=== PATIENT | female | born 1980 | race Caucasian/White ===

== ENCOUNTER 2017-10-13 10:20 | Emergency (ER) | payer MEDICAID ==
[~2017-10-13] VITALS: Ht 162.6 cm; Wt 50.0 kg
[~2017-10-13 10:20] MED LIST: ATI1T PO; NO HOME MEDS; ONDA8TAB9 PO
[2017-10-13 11:04] LABS: BASOPHILS % (AUTO) 0.7 % (0-1); EOSINOPHILS % (AUTO) 0.4 % (0-6); HEMATOCRIT 37.4 % (35.0-45.0); HEMOGLOBIN 13.3 g/dl (12.0-16.0); LYMPHOCYTES # (AUTO) 1.3 X10'3 (1.1-4.8); LYMPHOCYTES % (AUTO) 21.3 % (21-51); MEAN CORPUSCULAR HEMOGLOBIN 35.3 PG (27.0-31.0); MEAN CORPUSCULAR HGB CONC 35.5 % (33.0-36.5); MEAN CORPUSCULAR VOLUME 99.5 FL (78-98); MEAN PLATELET VOLUME 7.3 FL (7.4-10.4); MONOCYTES # (AUTO) 0.7 X10'3 (0-0.9); NEUTROPHILS % (AUTO) 65.6 % (42-75); PLATELET COUNT 230 X10'3 (140-440); RED BLOOD COUNT 3.76 X10'6 (4.20-5.60); RED CELL DISTRIBUTION WIDTH 12.4 % (11.5-14.5)
[2017-10-13 11:18] LABS: ALANINE AMINOTRANSFERASE 50 U/L (12-78); ALBUMIN 4.2 G/DL (3.4-5.0); ALBUMIN/GLOBULIN RATIO 1.3 (1.1-1.5); ANION GAP 7 (8-16); ASPARTATE AMINO TRANSFERASE 42 U/L (10-37); BILIRUBIN,TOTAL 0.6 MG/DL (0.1-1.0); BLOOD UREA NITROGEN 11 MG/DL (7-18); CALCIUM 9.5 MG/DL (8.5-10.1); CHLORIDE 104 MMOL/L (99-107); CREATININE 0.61 MG/DL (0.40-0.90); GLUCOSE 95 MG/DL (70-104); POTASSIUM 4.1 MMOL/L (3.5-5.1); SODIUM 142 MMOL/L (135-145); TOTAL CARBON DIOXIDE 31.2 MMOL/L (24-32); TOTAL PROTEIN 7.5 G/DL (6.4-8.2); eGFR > 90 ML/MIN
[2017-10-13 11:19] LABS: ALKALINE PHOSPHATASE 45 IU/L (46-116)
[2017-10-13 12:00] LABS: LIPASE 133 U/L (73-393)
[2017-10-13] MEDS ORDERED: ketorolac trometh inj. 60 MG/2 ML VIAL IM ONE (12:10)
[2017-10-13 12:12] LABS: URINE HCG NEGATIVE (NEG)
[2017-10-13 12:19] LABS: CLARITY,URINE SLIGHTLY CLOUDY (Clear); COLOR,URINE STRAW (Yellow); GLUCOSE, URINE NEGATIVE (Neg); KETONES,URINE NEGATIVE (Neg); LEUKOCYTE ESTERASE ,URINE NEGATIVE (Neg); NITRITES, URINE NEGATIVE (Neg); OCCULT BLOOD,URINE NEGATIVE (Neg); PH,URINE 6.5 (4.8-8.0); PROTEIN,URINE NEGATIVE (Neg); UA COLLECTION TYPE VOIDED; UROBILINOGEN,URINE 0.2 E.U/dL (0.2-1.0)
[2017-10-13 12:23] LABS: SQUAMOUS EPITHELIAL CELL,UR MODERATE /LPF (FEW); TRANSITIONAL EPI CELLS,URINE FEW /HPF
[2017-10-13 12:24] LABS: BACTERIA,URINE FEW /HPF (Neg); RBC,URINE 0-2 /HPF (0-2); WBC,URINE 0-4 /HPF (0-4)
[2017-10-13] MEDS ORDERED: DOXY100C43 PO (12:33)
[2017-10-13 12:47] VITALS: BP 131/88
== END 2017-10-13 12:48 | disposition home or self-care (01) ==
LOC: ER 10:20
DX: T19.2XXA Foreign body in vulva and vagina, initial encounter (principal); J06.9 Acute upper respiratory infection, unspecified; Z88.0 Allergy status to penicillin; Z88.1 Allergy status to other antibiotic agents; Z91.040 Latex allergy status; Z79.899 Other long term (current) drug therapy; X58.XXXA Exposure to other specified factors, initial encounter; Y93.89 Activity, other specified; Y92.89 Other specified places as the place of occurrence of the external cause; Y99.8 Other external cause status
CPT/HCPCS: 36415; 80053; 81001; 81025; 83690; 85025; 96372; 99284; J1885

== ENCOUNTER 2018-12-21 14:40 | Emergency (ER) | payer MEDICAID ==
[~2018-12-21] VITALS: Ht 157.5 cm; Wt 53.0 kg
[2018-12-21 15:24] LABS: BASOPHILS # (AUTO) 0.1 X10'3 (0-0.2); BASOPHILS % (AUTO) 0.8 % (0-1); EOSINOPHILS % (AUTO) 0.5 % (0-6); HEMATOCRIT 42.7 % (35.0-45.0); HEMOGLOBIN 14.7 g/dl (12.0-16.0); LYMPHOCYTES # (AUTO) 1.8 X10'3 (1.1-4.8); MEAN CORPUSCULAR HEMOGLOBIN 33.8 PG (27.0-31.0); MEAN CORPUSCULAR HGB CONC 34.3 g/dL (33.0-36.5); MEAN CORPUSCULAR VOLUME 98.6 FL (78-98); MEAN PLATELET VOLUME 7.7 FL (7.4-10.4); MONOCYTES # (AUTO) 0.8 X10'3 (0-0.9); MONOCYTES % (AUTO) 9.3 % (2-12); NEUTROPHILS # (AUTO) 5.5 X10'3 (1.8-7.7); NEUTROPHILS % (AUTO) 67.4 % (42-75); PLATELET COUNT 260 X10'3 (140-440); RED BLOOD COUNT 4.33 X10'6 (4.20-5.60); RED CELL DISTRIBUTION WIDTH 13.1 % (11.5-14.5); WHITE BLOOD COUNT 8.1 X10'3 (4.5-11.0)
[2018-12-21] MEDS ORDERED: ondansetron/PF 4mg/2ml inj IV ONE (15:30)
[2018-12-21] MEDS ORDERED: morphine 2 MG/ML inj. syringe IV ONE (15:30)
[2018-12-21] MEDS ORDERED: normal saline 1000ML IV soln IVB ONE (15:30)
[2018-12-21 15:38] LABS: ALANINE AMINOTRANSFERASE 22 U/L (12-78); ALBUMIN 4.3 G/DL (3.4-5.0); ALBUMIN/GLOBULIN RATIO 1.2 (1.1-1.5); ALKALINE PHOSPHATASE 51 IU/L (46-116); ANION GAP 9 (8-16); ASPARTATE AMINO TRANSFERASE 21 U/L (10-37); BILIRUBIN,TOTAL 0.5 MG/DL (0.1-1.0); BLOOD UREA NITROGEN 8 MG/DL (7-18); BUN/CREATININE RATIO 12.1 (6.6-38.0); CALCIUM 9.5 MG/DL (8.5-10.1); CHLORIDE 104 MMOL/L (99-107); CREATININE 0.66 MG/DL (0.40-0.90); GLUCOSE 101 MG/DL (70-104); POTASSIUM 3.2 MMOL/L (3.5-5.1); SODIUM 139 MMOL/L (135-145); TOTAL CARBON DIOXIDE 26.4 MMOL/L (24-32); TOTAL PROTEIN 7.8 G/DL (6.4-8.2); eGFR > 90 ML/MIN
[2018-12-21 15:44] LABS: URINE HCG NEGATIVE (NEG)
[2018-12-21 15:45] LABS: LIPASE 137 U/L (73-393)
[2018-12-21 15:46] LABS: CLARITY,URINE CLEAR (Clear); COLOR,URINE STRAW (Yellow); GLUCOSE, URINE NEGATIVE (Neg); KETONES,URINE NEGATIVE (Neg); LEUKOCYTE ESTERASE ,URINE NEGATIVE (Neg); NITRITES, URINE NEGATIVE (Neg); OCCULT BLOOD,URINE LARGE (Neg); PROTEIN,URINE NEGATIVE (Neg); UROBILINOGEN,URINE 0.2 E.U/dL (0.2-1.0)
[2018-12-21 15:51] LABS: UA COLLECTION TYPE CLN CATCH MIDSTREAM
[2018-12-21 15:52] LABS: BACTERIA,URINE FEW /HPF (Neg); RBC,URINE 0-2 /HPF (0-2); SQUAMOUS EPITHELIAL CELL,UR FEW /LPF (FEW); WBC,URINE 0-4 /HPF (0-4)
[2018-12-21] MEDS ORDERED: ketorolac tromethamine 15mg/ml inj. IV ONE (16:05)
[2018-12-21] MEDS ORDERED: mag hydrox/Alum hydrox/simeth 30ml oral suspension PO ONE (17:10)
[2018-12-21] MEDS ORDERED: LIDOcaine Viscous 15ml cup MM PRN (17:10)
[2018-12-21 17:20] VITALS: BP 147/76
== END 2018-12-21 17:29 | disposition home or self-care (01) ==
LOC: ER 14:40
DX: R10.11 Right upper quadrant pain (principal); R10.12 Left upper quadrant pain; R10.13 Epigastric pain; R10.30 Lower abdominal pain, unspecified; R10.84 Generalized abdominal pain; R11.2 Nausea with vomiting, unspecified; R19.7 Diarrhea, unspecified; Z88.0 Allergy status to penicillin; Z88.1 Allergy status to other antibiotic agents; Z91.040 Latex allergy status; Z79.899 Other long term (current) drug therapy
CPT/HCPCS: 36415; 76700; 80053; 81001; 81025; 83690; 85025; 85610; 96361; 96374; 96375; 99284; J1885; J2270; J2405; J7030

== ENCOUNTER → 2020-12-30 | Emergency (ER) | payer MEDICAID ==
[~2020-12-30] VITALS: Ht 162.6 cm; Wt 46.8 kg
[~2020-12-30] MED LIST changes: +GABA-530 PO; +LORA-269 PO
[2020-12-30 13:25] VITALS: BP 115/79
--- NOTE | 2020-12-30 16:01 | NUR ---
PT RECEIVED SCRIPTS AND MEDICAL CLEARANCE PT REQUESTED. PT NOW STATING "I CANT GO, I NEED A BED", PT GOES ON TO REPORT SHE DROVE HERE BUT STATES "I'M IN NO CONDITION TO DRIVE". PT REPORTS SHE HAD DRANK BEFORE DRIVING HERE BUT FEELS SHE WOULD BE IN BETTER [id number] SHE RECEIVED IV FLUIDS. PT WAS TRIAGED AT 1325 AND HAD BEEN WAITING IN THE LOBBY SINCE THEN AND REPORTED HER LAST DRINK OF ETOH WAS APPROX 1 HOUR BEFORE COMING HERE. WHEN PT BROUGHT TO [facility] PT WALKED WITH STEADY GAIT AND IS WITHOUT SLURRED SPEECH. PT INFORMED SHE HAS BEEN DISCHARGED BUT IS NOT TO DRIVE HOME AND ASKED IF SHE COULD CALL SOMEONE TO PICK HER UP OR HAVE A CAB CALLED FOR HER. PT REPORTED THESE WERE NOT OPTIONS FOR HER. PT INFORMED IF SHE LEFT FACILTY AND DRIVES THAT [facility] WOULD BE NOTIFIED. PT REPORTS SHE IS GOING TO SLEEP IN BACK SEAT OF VEHICLE AND DRINK FLUIDS. PT WAS WALKED OUT TO VEHICLE WITH STAFF AND SECURITY, PT GAVE PEACE TO VEHICLE TO STAFF AND REPORTS SHE WILL REST IN CAR TO SOBER UP. PT WILL COME TO [facility] TO HAVE PEACE RETURNED TO HER BY AN RN. PEACE FOB BEING HELD AT GENERAL INTERNIST DESK.
--- NOTE | 2020-12-30 18:08 | NUR ---
spoke to katie calvert [facility] at 1808 notifying them that we had PT car wagner.
== END | disposition home or self-care (01) ==
LOC: ER 12:58
DX: F10.10 Alcohol abuse, uncomplicated (principal); F31.9 Bipolar disorder, unspecified; F17.200 Nicotine dependence, unspecified, uncomplicated; Z98.890 Other specified postprocedural states; Z91.040 Latex allergy status; Z79.899 Other long term (current) drug therapy; Y90.9 Presence of alcohol in blood, level not specified
CPT/HCPCS: 99283

== ENCOUNTER 2023-10-04 15:51 | Emergency (ER) | payer MEDICAID ==
[~2023-10-04] VITALS: Ht 160 cm; Wt 45.5 kg
[2023-10-04 16:02] VITALS: BP 110/87; TEMP 97.6; O2SAT 98
[2023-10-04] MEDS: LORazepam 2 mg/ml vial IM ONE (16:34)
[2023-10-04] MEDS: normal saline 1000ML IV soln IVB ONE (16:50)
[2023-10-04] MEDS: thiamine 100mg/ml 2ml inj. IV ONE (19:08)
[2023-10-04 19:15] LABS: BASOPHILS % (AUTO) 0.6 % (0-1); EOSINOPHILS # (AUTO) 0.1 X10'3 (0-0.9); EOSINOPHILS % (AUTO) 0.9 % (0-6); HEMATOCRIT 40.1 % (35.0-45.0); HEMOGLOBIN 13.4 g/dl (12.0-16.0); LYMPHOCYTES # (AUTO) 2.1 X10'3 (1.1-4.8); LYMPHOCYTES % (AUTO) 27.9 % (21-51); MEAN CORPUSCULAR HEMOGLOBIN 32.4 PG (27.0-31.0); MEAN CORPUSCULAR HGB CONC 33.4 g/dL (33.0-36.5); MEAN PLATELET VOLUME 7.1 FL (7.4-10.4); MONOCYTES # (AUTO) 0.7 X10'3 (0-0.9); MONOCYTES % (AUTO) 9.2 % (2-12); NEUTROPHILS # (AUTO) 4.7 X10'3 (1.8-7.7); NEUTROPHILS % (AUTO) 61.4 % (42-75); PLATELET COUNT 276 X10'3 (140-440); RED BLOOD COUNT 4.13 X10'6 (4.20-5.60); RED CELL DISTRIBUTION WIDTH 13.1 % (11.5-14.5); WHITE BLOOD COUNT 7.7 X10'3 (4.5-11.0)
[2023-10-04 19:16] LABS: BILIRUBIN,URINE NEGATIVE (Neg); CLARITY,URINE CLOUDY (Clear); COLOR,URINE YELLOW (Yellow); GLUCOSE, URINE NEGATIVE (Neg); KETONES,URINE TRACE mg/dl (Neg); LEUKOCYTE ESTERASE ,URINE NEGATIVE (Neg); NITRITES, URINE NEGATIVE (Neg); OCCULT BLOOD,URINE TRACE-INTACT (Neg); PH,URINE 5.5 (4.8-8.0); PROTEIN,URINE NEGATIVE (Neg); URINE HCG NEGATIVE (NEG); UROBILINOGEN,URINE 0.2 E.U/dL (0.2-1.0)
[2023-10-04 19:25] LABS: UA COLLECTION TYPE NON-SPECIFIED
[2023-10-04 19:27] LABS: ALANINE AMINOTRANSFERASE 51 U/L (12-78); ALBUMIN 4.1 G/DL (3.4-5.0); ALBUMIN/GLOBULIN RATIO 1.2 (1.1-1.5); ALKALINE PHOSPHATASE 40 IU/L (46-116); ANION GAP 8 (8-16); ASPARTATE AMINO TRANSFERASE 29 U/L (10-37); BILIRUBIN,TOTAL 0.4 MG/DL (0.1-1.0); BLOOD UREA NITROGEN 7 MG/DL (7-18); BUN/CREATININE RATIO 15.6 (10.0-20.0); CALCIUM 8.2 MG/DL (8.5-10.1); CHLORIDE 109 MMOL/L (99-107); CREATININE 0.45 MG/DL (0.40-0.90); GLUCOSE 92 MG/DL (70-104); LIPASE 25 U/L (16-77); SODIUM 146 MMOL/L (135-145); TOTAL CARBON DIOXIDE 29.1 MMOL/L (24-32); TOTAL PROTEIN 7.6 G/DL (6.4-8.2); eCRCL 116 ML/MIN; eGFR > 90 ML/MIN
[2023-10-04 19:28] LABS: MUCUS STRANDS MODERATE /LPF (Neg); SQUAMOUS EPITHELIAL CELL,UR FEW /LPF (FEW); URIC ACID CRYSTALS 4+ /HPF (NEGATIVE)
[2023-10-04 19:29] LABS: BACTERIA,URINE 1+ /HPF (Neg); RENAL CELLS, URINE FEW /HPF
[2023-10-04 19:30] LABS: RBC,URINE 0-2 /HPF (0-2); WBC,URINE 0-4 /HPF (0-4)
[2023-10-04] MEDS ORDERED: CHLO25CA10 PO (19:52)
[2023-10-04 20:22] VITALS: PULSE 60; RESP 18
== END 2023-10-04 20:25 | disposition home or self-care (01) ==
LOC: ER 15:51
DX: F10.129 Alcohol abuse with intoxication, unspecified (principal); F31.9 Bipolar disorder, unspecified; Z88.0 Allergy status to penicillin; Z88.1 Allergy status to other antibiotic agents; Z91.040 Latex allergy status; Z79.899 Other long term (current) drug therapy; Y90.9 Presence of alcohol in blood, level not specified
CPT/HCPCS: 36415; 80053; 81001; 81025; 83690; 84484; 85025; 93005; 96361; 96372; 96374; 99284; J2060; J3411; J7030

== ENCOUNTER 2023-11-29 17:23 | Emergency (ER) | payer MEDICAID ==
[~2023-11-29] VITALS: Ht 157.5 cm; Wt 45.5 kg
[~2023-11-29 17:23] MED LIST changes: +CHLO25CA10 PO
[2023-11-29 18:41] LABS: BASOPHILS % (AUTO) 0.4 % (0-1); EOSINOPHILS % (AUTO) 0.2 % (0-6); HEMATOCRIT 42.2 % (35.0-45.0); HEMOGLOBIN 14.2 g/dl (12.0-16.0); LYMPHOCYTES # (AUTO) 2.9 X10'3 (1.1-4.8); LYMPHOCYTES % (AUTO) 30.7 % (21-51); MEAN CORPUSCULAR HEMOGLOBIN 32.7 PG (27.0-31.0); MEAN CORPUSCULAR HGB CONC 33.5 g/dL (33.0-36.5); MEAN CORPUSCULAR VOLUME 97.4 FL (78-98); MEAN PLATELET VOLUME 6.9 FL (7.4-10.4); MONOCYTES % (AUTO) 10.4 % (2-12); NEUTROPHILS # (AUTO) 5.4 X10'3 (1.8-7.7); NEUTROPHILS % (AUTO) 58.3 % (42-75); PLATELET COUNT 297 X10'3 (140-440); RED BLOOD COUNT 4.33 X10'6 (4.20-5.60); RED CELL DISTRIBUTION WIDTH 12.9 % (11.5-14.5); WHITE BLOOD COUNT 9.3 X10'3 (4.5-11.0)
[2023-11-29] MEDS: LORazepam 2 mg/ml vial IV ONE (18:48)
[2023-11-29] MEDS: ondansetron/PF 4mg/2ml inj IV ONE (18:56)
[2023-11-29] MEDS: pantoprazole 40 MG vial IV ONE (18:57)
[2023-11-29] MEDS: diphenhydrAMINE 50 mg/ml inj IV ONE (18:57)
[2023-11-29 19:06] LABS: ANION GAP 12 (8-16); BLOOD UREA NITROGEN 12 MG/DL (7-18); BUN/CREATININE RATIO 18.5 (10.0-20.0); CALCIUM 8.8 MG/DL (8.5-10.1); CHLORIDE 102 MMOL/L (99-107); CREATINE KINASE 132 U/L (26-192); CREATININE 0.65 MG/DL (0.40-0.90); ETHANOL 223 MG/DL (<10); GLUCOSE 106 MG/DL (70-104); LIPASE 31 U/L (16-77); MAGNESIUM 1.9 MG/DL (1.5-2.4); POTASSIUM 3.9 MMOL/L (3.5-5.1); SODIUM 139 MMOL/L (135-145); TOTAL CARBON DIOXIDE 24.8 MMOL/L (24-32); eCRCL 80 ML/MIN; eGFR > 90 ML/MIN
[2023-11-29] MEDS: normal saline 1000ML IV soln IVB ONE ×2 (19:54)
[2023-11-30 00:44] LABS: BILIRUBIN,URINE NEGATIVE (Neg); CLARITY,URINE SLIGHTLY CLOUDY (Clear); COLOR,URINE YELLOW (Yellow); GLUCOSE, URINE NEGATIVE (Neg); KETONES,URINE NEGATIVE (Neg); LEUKOCYTE ESTERASE ,URINE NEGATIVE (Neg); NITRITES, URINE NEGATIVE (Neg); OCCULT BLOOD,URINE TRACE-INTACT (Neg); PROTEIN,URINE NEGATIVE (Neg); UROBILINOGEN,URINE 0.2 E.U/dL (0.2-1.0)
[2023-11-30 00:47] LABS: UA COLLECTION TYPE NON-SPECIFIED
[2023-11-30 00:55] LABS: BACTERIA,URINE 1+ /HPF (Neg); MUCUS STRANDS MANY /LPF (Neg); TRANSITIONAL EPI CELLS,URINE FEW /HPF
[2023-11-30 00:56] LABS: WBC,URINE 0-4 /HPF (0-4)
[2023-11-30 00:57] LABS: RBC,URINE 0-2 /HPF (0-2); SQUAMOUS EPITHELIAL CELL,UR MANY /LPF (FEW); URINE AMPHETAMINE SCREEN NEGATIVE (Neg); URINE BARBITUATE SCREEN NEGATIVE (Neg); URINE BENZODIAZEPINES SCREEN NEGATIVE (Neg); URINE CANNABINOID SCREEN POSITIVE (Neg); URINE COCAINE SCREEN NEGATIVE (Neg); URINE METHADONE SCREEN NEGATIVE (Neg); URINE OPIATE SCREEN NEGATIVE (Neg); URINE PHENCYCLIDINE SCREEN NEGATIVE (Neg)
[2023-11-30 01:00] VITALS: BP 104/66; PULSE 86; RESP 16; TEMP 98.6; O2SAT 99
[2023-12-01] MEDS ORDERED: ONDA8TAB13 PO (17:37)
[2023-12-01] MEDS ORDERED: OMEP20CA16 PO (17:37)
== END 2023-11-30 01:04 | disposition home or self-care (01) ==
LOC: ER 17:24
DX: M79.10 Myalgia, unspecified site (principal); R06.4 Hyperventilation; R23.2 Flushing; Z88.0 Allergy status to penicillin; Z88.1 Allergy status to other antibiotic agents; Z79.899 Other long term (current) drug therapy; Z72.89 Other problems related to lifestyle; Z23 Encounter for immunization
CPT/HCPCS: 36415; 70450; 71045; 80048; 80305; 80320; 81001; 82550; 82948; 83690; 83735; 84484; 85025; 93005; 96361; 96374; 96375; 99285; C9113; J1200; J2060; J2405; J7030; 90471

== ENCOUNTER 2023-12-01 12:09 | Inpatient (IN) | payer MEDICAID ==
[~2023-12-01] VITALS: Ht 160 cm; Wt 49.8 kg
[2023-12-01] VITALS (12 sets, daily range): BP systolic 105–117; BP diastolic 59–71; PULSE 76–116; RESP 11–22; O2SAT 95–100
[2023-12-01 12:26] LABS: ABG BASE EXCESS -6.8 mmol/L (-2.0-2.0); ABG HCO3 18.2 mmol/L (22.0-26.0); ABG OXYGEN SATURATION 96.1 % (94-97); ABG PCO2 (T) 34.6 mmHg (32.0-45.0); ABG PH (T) 7.337 (7.350-7.450); ABG PO2 (T) 94.1 mmHg (75.0-100.0); ALLEN'S TEST POSITIVE; FCOHb 0.3 % (0.0-3.9); FHHb 3.9 % (0.0-5.0); FMetHb 0.5 % (0.0-1.5); FO2Hb 95.3 % (94-97); MODE ROOM AIR; PATIENT TEMPERATURE 36.9; TOTAL HEMOGLOBIN 13.2 G/dl (12.0-16.0)
[2023-12-01 12:41] LABS: BASOPHILS % (AUTO) 0.2 % (0-1); EOSINOPHILS % (AUTO) 0.1 % (0-6); HEMATOCRIT 37.9 % (35.0-45.0); HEMOGLOBIN 12.7 g/dl (12.0-16.0); LYMPHOCYTES # (AUTO) 0.8 X10'3 (1.1-4.8); LYMPHOCYTES % (AUTO) 7.3 % (21-51); MEAN CORPUSCULAR HEMOGLOBIN 32.9 PG (27.0-31.0); MEAN CORPUSCULAR HGB CONC 33.7 g/dL (33.0-36.5); MEAN CORPUSCULAR VOLUME 97.8 FL (78-98); MEAN PLATELET VOLUME 7.2 FL (7.4-10.4); MONOCYTES # (AUTO) 0.3 X10'3 (0-0.9); MONOCYTES % (AUTO) 3.1 % (2-12); NEUTROPHILS # (AUTO) 9.6 X10'3 (1.8-7.7); NEUTROPHILS % (AUTO) 89.3 % (42-75); PLATELET COUNT 215 X10'3 (140-440); RED BLOOD COUNT 3.87 X10'6 (4.20-5.60); RED CELL DISTRIBUTION WIDTH 13.1 % (11.5-14.5); WHITE BLOOD COUNT 10.8 X10'3 (4.5-11.0)
[2023-12-01] MEDS: propofol 1000mg/100ml bottle 100 ML IV PRN (12:47)
[2023-12-01] MEDS: normal saline 1000ML IV soln IVB ONE (12:48)
[2023-12-01] MEDS: LORazepam 2 mg/ml vial IV ONE (12:49)
[2023-12-01] MEDS: succinylcholine 20mg/ml inj IV ONE (12:49)
[2023-12-01 13:00] LABS: ALBUMIN 3.5 G/DL (3.4-5.0); ANION GAP 17 (8-16); BLOOD UREA NITROGEN 16 MG/DL (7-18); BUN/CREATININE RATIO 25.4 (10.0-20.0); CALCIUM 7.8 MG/DL (8.5-10.1); CHLORIDE 101 MMOL/L (99-107); CREATININE 0.63 MG/DL (0.40-0.90); ETHANOL 183 MG/DL (<10); GLUCOSE 201 MG/DL (70-104); POTASSIUM 3.1 MMOL/L (3.5-5.1); SALICYLATE 2.4 MG/DL (4.0-20.0); SODIUM 138 MMOL/L (135-145); THYROID STIMULATING HORMONE 0.48 ulU/ml (0.34-4.50); TOTAL CARBON DIOXIDE 20.5 MMOL/L (24-32); eCRCL 95 ML/MIN; eGFR > 90 ML/MIN
[2023-12-01 13:14] LABS: ACETAMINOPHEN < 2.0 UG/ML (10-30)
[2023-12-01] MEDS: LORazepam 2 mg/ml vial ONE (13:22)
[2023-12-01] MEDS: thiamine 100mg/ml 2ml inj. IV ONE (13:26)
[2023-12-01] MEDS ORDERED: magnesium hydroxide 30ml (MOM) UD suspension PO PRN (13:30)
[2023-12-01] MEDS ORDERED: morphine 2 MG/ML inj. syringe IV PRN (13:30)
[2023-12-01] MEDS ORDERED: morphine 4 MG/ML inj SYRINge IV PRN (13:30)
[2023-12-01] MEDS ORDERED: acetaminophen 325mg tablet PO PRN (13:30)
[2023-12-01 13:40] LABS: ABG BASE EXCESS -5.6 mmol/L (-2.0-2.0); ABG HCO3 19.4 mmol/L (22.0-26.0); ABG OXYGEN SATURATION 99.2 % (94-97); ABG PCO2 (T) 35.5 mmHg (32.0-45.0); ABG PH (T) 7.354 (7.350-7.450); ALLEN'S TEST POSITIVE; FCOHb 0.3 % (0.0-3.9); FHHb 0.8 % (0.0-5.0); FMetHb 0.4 % (0.0-1.5); FO2Hb 98.5 % (94-97); MODE VENT - AC; PATIENT TEMPERATURE 36.6; PEEP 5 cm H2O; RESPIRATORY RATE 14 b/min; TIDAL VOLUME 400 mL; TOTAL HEMOGLOBIN 12.2 G/dl (12.0-16.0)
[2023-12-01] MEDS: normal saline 1000ml 1,000 ML IV SCH (14:21)
[2023-12-01] MEDS: LidoCAINE 2% Topical Jelly 11mL syringe (UROJET) TOP ONE (14:23)
[2023-12-01] MEDS ORDERED: etomidate 2mg/ml inj. ONE (14:30)
[2023-12-01 14:34] LABS: URINE HCG NEGATIVE (NEG)
[2023-12-01 14:40] LABS: BILIRUBIN,URINE NEGATIVE (Neg); CLARITY,URINE CLEAR (Clear); COLOR,URINE STRAW (Yellow); GLUCOSE, URINE 250 mg/dl (Neg); KETONES,URINE 40 mg/dl (Neg); LEUKOCYTE ESTERASE ,URINE NEGATIVE (Neg); NITRITES, URINE NEGATIVE (Neg); OCCULT BLOOD,URINE TRACE-INTACT (Neg); PROTEIN,URINE NEGATIVE (Neg); UA COLLECTION TYPE CLN CATCH MIDSTREAM; UROBILINOGEN,URINE 0.2 E.U/dL (0.2-1.0)
[2023-12-01 14:44] LABS: URINE AMPHETAMINE SCREEN NEGATIVE (Neg); URINE BARBITUATE SCREEN NEGATIVE (Neg); URINE BENZODIAZEPINES SCREEN POSITIVE (Neg); URINE CANNABINOID SCREEN POSITIVE (Neg); URINE COCAINE SCREEN NEGATIVE (Neg); URINE METHADONE SCREEN NEGATIVE (Neg); URINE OPIATE SCREEN NEGATIVE (Neg); URINE PHENCYCLIDINE SCREEN NEGATIVE (Neg)
[2023-12-01 14:45] LABS: BACTERIA,URINE NONE SEEN /HPF (Neg); RBC,URINE 0-2 /HPF (0-2); SQUAMOUS EPITHELIAL CELL,UR FEW /LPF (FEW); WBC,URINE 0-4 /HPF (0-4)
[2023-12-01] MEDS ORDERED: FENTANYL-0.9 % NACL/PF 100 ML IV PRN (15:10)
[2023-12-01] MEDS: midazolam 1 mg/ML 2ml injection ONE (15:18)
[2023-12-01] MEDS: midazolam 1 mg/ML 2ml injection IV ONE (15:18)
[2023-12-01] MEDS: FENTANYL-0.9 % NACL/PF 100 ML IV PRN (15:53)
[2023-12-01] MEDS ORDERED: DEXMEDETOMIDINE IN 0.9 % NACL 50 ML IV SCH (16:20)
[2023-12-01] MEDS: DEXMEDETOMIDINE 400MCG in NORMAL SALINE 100ml IV SCH (16:30)
[2023-12-01] MEDS ORDERED: insulin Lispro (HumaLOG) vial - multi-dose SQ SCH (17:30)
[2023-12-01] MEDS ORDERED: dextrose 50%-water 50ml dispensing syringe IV PRN (17:30)
[2023-12-01] MEDS ORDERED: DEXTROSE 15 GM of carb/4 tabs (each vial/BOTTLE has 4 tablets) PO PRN ×2 (17:30)
[2023-12-01] MEDS ORDERED: glucagon, human recombinant 1mg kit SUBCUT PRN (17:30)
[2023-12-01] MEDS: dextrose 50%-water 50ml dispensing syringe IV ONE (17:33)
[2023-12-01] MEDS: MESSAGE TO PHARMACY PO ONE (17:33)
[2023-12-01] MEDS ORDERED: OMEP20CA16 PO (17:37)
[2023-12-01] MEDS ORDERED: ONDA8TAB13 PO (17:37)
[2023-12-01 19:11] LABS: HEMOGLOBIN A1C 5.3 % (4.5-6.2)
[2023-12-01] MEDS: famotidine/PF 10 mg/ml inj IV SCH (20:50)
[2023-12-01] MEDS: levetiracetam inj 1,000 MG in normal saline 100ml IV soln 100 ML IV SCH (20:50)
[2023-12-01] MEDS: insulin glargine (Lantus) pen - multi-dose SQ SCH (21:00)
[2023-12-01] MEDS: dextrose 50%-water 50ml dispensing syringe IV PRN (21:08)
[2023-12-02] VITALS (16 sets, daily range): BP systolic 98–132; BP diastolic 60–80; PULSE 62–92; RESP 13–22; TEMP 98.2–99.6; O2SAT 92–98
[2023-12-02 06:28] LABS: ALBUMIN 2.8 G/DL (3.4-5.0); ANION GAP 10 (8-16); BLOOD UREA NITROGEN 13 MG/DL (7-18); BUN/CREATININE RATIO 27.7 (10.0-20.0); CALCIUM 7.8 MG/DL (8.5-10.1); CHLORIDE 107 MMOL/L (99-107); CREATININE 0.47 MG/DL (0.40-0.90); GLUCOSE 79 MG/DL (70-104); MAGNESIUM 1.7 MG/DL (1.5-2.4); PHOSPHORUS 3.2 MG/DL (2.3-4.5); POTASSIUM 3.5 MMOL/L (3.5-5.1); SODIUM 141 MMOL/L (135-145); TOTAL CARBON DIOXIDE 24.1 MMOL/L (24-32); eCRCL 121 ML/MIN; eGFR > 90 ML/MIN
[2023-12-02] MEDS: enoxaparin 40mg/0.4ml syringe SUBCUT SCH (08:00)
[2023-12-02] MEDS: famotidine 20mg tablet PO SCH (10:36)
[2023-12-02] MEDS: levetiracetam 250mg tablet PO SCH (10:37)
[2023-12-02] MEDS: multivitamins, therapeutics tablet PO SCH (10:38)
[2023-12-02] MEDS: ondansetron/PF 4mg/2ml inj IV PRN (11:04)
[2023-12-02] MEDS: acetaminophen 325mg tablet PO PRN (14:30)
[2023-12-03] MEDS: Melatonin 3mg tablet PO PRN (00:31)
[2023-12-03 01:42] VITALS: BP 115/65; PULSE 75; RESP 18; TEMP 98.6; O2SAT 97
[2023-12-03 08:00] VITALS: BP 126/80; PULSE 102; RESP 16; RESP 18; TEMP 98.8; O2SAT 98
[2023-12-03 08:11] LABS: ALBUMIN 3.2 G/DL (3.4-5.0); ANION GAP 6 (8-16); BLOOD UREA NITROGEN 7 MG/DL (7-18); CALCIUM 8.3 MG/DL (8.5-10.1); CHLORIDE 103 MMOL/L (99-107); GLUCOSE 89 MG/DL (70-104); MAGNESIUM 1.8 MG/DL (1.5-2.4); PHOSPHORUS 3.3 MG/DL (2.3-4.5); POTASSIUM 3.3 MMOL/L (3.5-5.1); SODIUM 137 MMOL/L (135-145); TOTAL CARBON DIOXIDE 28.3 MMOL/L (24-32); eCRCL 114 ML/MIN; eGFR > 90 ML/MIN
[2023-12-03] MEDS ORDERED: LORazepam 2 mg/ml vial IV PRN (08:25)
[2023-12-03] MEDS ORDERED: haloperidol 5mg tablet PO PRN (08:25)
[2023-12-03] MEDS ORDERED: haloperidol lactate 5mg/ml inj IM PRN (08:25)
[2023-12-03] MEDS: thiamine 100mg tablet PO SCH (12:52)
[2023-12-03] MEDS: levetiracetam inj 1,000 MG in normal saline 100ml IV soln 100 ML IV ONE (13:18)
[2023-12-03 14:00] VITALS: BP 118/67; PULSE 78; RESP 16; TEMP 98.8; O2SAT 99
[2023-12-03 18:00] VITALS: BP 130/87; PULSE 90; RESP 18; TEMP 98.5; O2SAT 100
[2023-12-03] MEDS ORDERED: potassium Cl 40MEQ/1/2NS 520ml 520 ML IV PRN (19:15)
[2023-12-03] MEDS ORDERED: potassium Cl 20 mEq SR tablet PO PRN (19:15)
[2023-12-03 20:00] VITALS: BP 131/80; PULSE 102; RESP 16; TEMP 98.6; O2SAT 100
[2023-12-03] MEDS: potassium Cl 20 mEq SR tablet PO PRN (20:16)
[2023-12-03] MEDS: K and/or MAG REPLACEMENT MC SCH (20:18)
[2023-12-03 22:00] VITALS: BP 131/80; PULSE 102; RESP 16; TEMP 98.6; O2SAT 100
[2023-12-03] MEDS ORDERED: LORazepam 1 MG tablet PO PRN (23:05)
[2023-12-03] MEDS: temazepam 15mg capsule PO PRN (23:11)
[2023-12-03] MEDS: LORazepam 1 MG tablet PO PRN (23:11)
[2023-12-04 02:00] VITALS: BP 100/70; PULSE 87; RESP 17; TEMP 97.8; O2SAT 100
[2023-12-04 06:49] VITALS: BP 118/78; PULSE 62; RESP 17; TEMP 98.8; O2SAT 100
[2023-12-04 07:24] LABS: PROTHROMBIN TIME 10.7 SECONDS (9.0-12.0)
[2023-12-04 07:27] LABS: BASOPHILS % (AUTO) 0.3 % (0-1); EOSINOPHILS # (AUTO) 0.1 X10'3 (0-0.9); EOSINOPHILS % (AUTO) 1.3 % (0-6); HEMOGLOBIN 12.7 g/dl (12.0-16.0); LYMPHOCYTES # (AUTO) 1.2 X10'3 (1.1-4.8); MEAN CORPUSCULAR HEMOGLOBIN 33.2 PG (27.0-31.0); MEAN CORPUSCULAR HGB CONC 34.2 g/dL (33.0-36.5); MEAN CORPUSCULAR VOLUME 97.2 FL (78-98); MEAN PLATELET VOLUME 7.7 FL (7.4-10.4); MONOCYTES # (AUTO) 0.6 X10'3 (0-0.9); MONOCYTES % (AUTO) 8.4 % (2-12); NEUTROPHILS # (AUTO) 5.1 X10'3 (1.8-7.7); PLATELET COUNT 188 X10'3 (140-440); RED BLOOD COUNT 3.81 X10'6 (4.20-5.60); RED CELL DISTRIBUTION WIDTH 12.6 % (11.5-14.5)
[2023-12-04] MEDS: levetiracetam 250mg tablet PO SCH (07:38)
[2023-12-04 07:44] LABS: ALBUMIN 3.2 G/DL (3.4-5.0); ANION GAP 8 (8-16); BLOOD UREA NITROGEN 7 MG/DL (7-18); CALCIUM 8.8 MG/DL (8.5-10.1); CHLORIDE 104 MMOL/L (99-107); GLUCOSE 89 MG/DL (70-104); LIPASE 26 U/L (16-77); PHOSPHORUS 3.8 MG/DL (2.3-4.5); POTASSIUM 4.2 MMOL/L (3.5-5.1); SODIUM 139 MMOL/L (135-145); TOTAL CARBON DIOXIDE 26.8 MMOL/L (24-32); eCRCL 114 ML/MIN; eGFR > 90 ML/MIN
[2023-12-04 08:00] VITALS: BP 118/78; PULSE 62; RESP 17; TEMP 98.8; O2SAT 100
[2023-12-04] MEDS: multivitamins, therapeutics tablet PO SCH (08:00)
[2023-12-04 08:15] VITALS: RESP 17; O2SAT 100
[2023-12-04] MEDS ORDERED: LEVE500T PO (09:56)
[2023-12-04] MEDS: LORazepam 1 MG tablet PO PRN (11:25)
[2023-12-04] MEDS: ondansetron 4mg rapidly disintigrating tab PO PRN (14:53)
[2023-12-04] MEDS ORDERED: LORA-269 PO (16:24)
[2023-12-05] MEDS ORDERED: LORazepam 2 mg/ml vial IV PRN (08:25)
[2023-12-07] MEDS ORDERED: LORazepam 2 mg/ml vial IV PRN (08:25)
[2023-12-07] MEDS ORDERED: LORazepam 1 MG tablet PO PRN (08:25)
[2023-12-08] MEDS ORDERED: folic acid 1mg tablet PO SCH (08:00)
== END 2023-12-04 16:50 | disposition home or self-care (01) | DRG 53 ==
LOC: ER 12:09 → ED HOLD 13:32 → CICU 2S 16:17 → ORTHO 4S 12-02 20:03
PROVIDERS: ADMIT Internal Medicine Critical Care Medicine; ATTEND Internal Medicine Critical Care Medicine
PROC: 5A1935Z Respiratory Ventilation, Less than 24 Consecutive Hours (ICD-10-PCS; principal; 2023-12-01)
PROC: 0BH17EZ Insertion of Endotracheal Airway into Trachea, Via Natural or Artificial Opening (ICD-10-PCS; 2023-12-01)
DX: G40.801 Other epilepsy, not intractable, with status epilepticus (principal); J96.01 Acute respiratory failure with hypoxia; R27.0 Ataxia, unspecified; F41.9 Anxiety disorder, unspecified; F31.9 Bipolar disorder, unspecified; G37.9 Demyelinating disease of central nervous system, unspecified; F10.129 Alcohol abuse with intoxication, unspecified; Y90.6 Blood alcohol level of 120-199 mg/100 ml; F17.210 Nicotine dependence, cigarettes, uncomplicated; F10.139 Alcohol abuse with withdrawal, unspecified; E87.6 Hypokalemia; Z88.0 Allergy status to penicillin; Z63.4 Disappearance and death of family member; Z88.1 Allergy status to other antibiotic agents; Z91.040 Latex allergy status; Z91.048 Other nonmedicinal substance allergy status
CPT/HCPCS: 36415; 36600; 70450; 70551; 71045; 80048; 80178; 80305; 80320; 80329; 81001; 81025; 82803; 82948; 83036; 83690; 83735; 84100; 84443; 85018; 85025; 85610; 87070; 87081; 93005; 94002; 94760; 94799; 96374; 96375; 99291; A4615; A6213; A6258; C1758; G0378; J0330; J1650; J1815; J1953; J2060; J2250; J2405; J2704; J3010; J3411; J3490; J7030; J7040

== ENCOUNTER 2023-12-13 10:30 | Emergency (ER) | payer MEDICAID ==
[~2023-12-13] VITALS: Ht 162.6 cm; Wt 51.8 kg
[~2023-12-13 10:30] MED LIST changes: -ATI1T PO; -CHLO25CA10 PO; -GABA-530 PO; +LEVE500T PO; -NO HOME MEDS; +OMEP20CA16 PO; +ONDA8TAB13 PO; -ONDA8TAB9 PO
[2023-12-13 10:42] VITALS: BP 120/77; PULSE 90; RESP 18; TEMP 97.8; O2SAT 98
[2023-12-13] MEDS ORDERED: CEPH-585 PO (11:55)
== END 2023-12-13 12:08 | disposition home or self-care (01) ==
LOC: ER 10:31
DX: I80.8 Phlebitis and thrombophlebitis of other sites (principal); F10.90 Alcohol use, unspecified, uncomplicated; Z88.0 Allergy status to penicillin; Z91.040 Latex allergy status; Z79.899 Other long term (current) drug therapy; Z79.2 Long term (current) use of antibiotics
CPT/HCPCS: 99283